=== PATIENT | female | born 1955 | race Two or more races ===

== ENCOUNTER 2023-10-11 19:00 | Emergency (ER) | payer OTHER ==
[~2023-10-11] VITALS: Ht 182.9 cm; Wt 108.9 kg
[~2023-10-11 19:00] MED LIST: ATENOLOL50 MG; ATORVASTATIN CA40 MG; FERRO-TIME325 MG; FOLIC ACID1 MG; LASIX20 MG; LISINOPRIL40 MG; MEDROLPACK PO; NEURONTIN300 MG; PENTOXIFYLLINE400 MG; PROVENTIL0.5 ML/2.5; PULMICORT1 MG/2 ML IH; SINGULAIR 10MG10 MG; ZITHROMAX200 MG PO
[2023-10-11 22:10] LABS: HEMATOCRIT 36.7 % (36.0-45.00); HEMOGLOBIN 12.4 g/dL (12.0-15.00); MEAN CELL VOLUME 74.9 fL (80.00-100.00); MEAN CORPUSCULAR HEMOGLOBIN 25.2 pg (27.00-32.0); MEAN CORPUSCULAR HGB CONC 33.6 g/dl (32.0-36.0); PLATELET COUNT 192 K/uL (150-450); RED CELL DISTRIBUTION WIDTH 15.8 % (11.5-14.5)
[2023-10-11 22:27] LABS: CALCIUM 9.1 mg/dL (8.5-10.1); CREATININE SERUM 1.07 mg/dL (0.55-1.02); GFR 51.3; POTASSIUM 4.36 mEq/L (3.5-5.1)
[2023-10-12] MEDS ORDERED: BACTRIM DS TAB1 EACH PO (00:16)
== END 2023-10-12 01:03 | disposition home or self-care (01) ==
LOC: ER 19:00
PROVIDERS: General Practice
DX: L97.529 Non-pressure chronic ulcer of other part of left foot with unspecified severity (principal)